=== PATIENT | female | born 1980 | race Caucasian/White ===

== ENCOUNTER → 2021-11-14 | Outpatient (CLI) | payer BC ==
[~2021-11-14] MED LIST: ACHD5005 PO; DCS100C PO; FRS325T PO; IBP600T1 PO
--- NOTE | 2021-11-14 12:07 | Diagnostic Imaging Report ---
INDICATION: Routine screening. COMPARISON: No prior mammograms are available for comparison. This is a baseline study. TECHNIQUE: 2D and 3D bilateral screening mammography was performed with CAD. FINDINGS: Both breasts are heterogeneously dense, limiting the sensitivity of mammography. There are numerous circumscribed nodules in the outer aspects of both breasts, most suggestive of intraparenchymal lymph nodes. A more ill-defined density in the outer right breast at mid depth is noted, best seen on the CC view. This may be superiorly located on the MLO view. Additional views are recommended. No suspicious density in the left breast is identified. The axillae are unremarkable. IMPRESSION: Right breast density. Additional views are recommended for further evaluation. ACR BI-RADS Category 0: Incomplete. (Needs additional imaging evaluation). Result letter will be mailed to the patient. Note: At least 10% of breast cancer is not imaged by mammography. Dictated by: Dictated on workstation # [id number]
== END ==
LOC: RAD 09:53
PROVIDERS: ATTEND Nurse Practitioner Women's Health
DX: Z12.31 Encounter for screening mammogram for malignant neoplasm of breast (principal)
CPT/HCPCS: 77063; 77067

== ENCOUNTER → 2021-11-30 | Outpatient (CLI) | payer BC ==
--- NOTE | 2021-11-30 09:33 | Diagnostic Imaging Report ---
INDICATION: Right breast density. Patient presents for additional views. COMPARISON: Correlation is made with the screening study from 11/14/2021. TECHNIQUE: Unilateral right 2D and 3D diagnostic mammography was performed. This included spot compression CC, rolled CC, and conventional 90 degree lateral views. The current study was evaluated with a Computer Aided Detection (CAD) system. FINDINGS: The additional views show a persistent density in the outer right breast. This appears to be superiorly located approximately 5 to 7 cm from the nipple. IMPRESSION: Persistent density in the upper outer right breast 5 to 7 cm from the nipple. Further evaluation with ultrasound is recommended and will be performed today. ACR BI-RADS Category 0: Incomplete. (Needs additional imaging evaluation). Result letter will be mailed to the patient. Note: At least 10% of breast cancer is not imaged by mammography. Dictated by: Dictated on workstation # [id number]
--- NOTE | 2021-11-30 10:16 | Diagnostic Imaging Report ---
Indication: Right breast density. Correlation is made with diagnostic mammogram earlier same day and screening study from 11/14/2021. Sonographic interrogation upper outer right breast was performed. There are several cystic structures in the upper outer right breast from the 9:30-10:00 location, 7-8 cm from the nipple. Largest cyst measures 6 mm x 3 mm x 5 mm. No concerning sonographic findings are seen. No solid masses are detected. IMPRESSION: BI-RADS Category 3 There are multiple cysts in the upper outer right breast. It is uncertain if these represent the density noted mammographically. Therefore, follow-up right mammogram in 6 months is recommended to show continued stability. ACR BI-RADS Category 3: Probably benign findings. Dictated by: Dictated on workstation # [id number]
== END ==
LOC: RAD 08:53
PROVIDERS: ATTEND Nurse Practitioner Women's Health
DX: N60.01 Solitary cyst of right breast (principal); R92.2 Inconclusive mammogram
CPT/HCPCS: 76642; 77065; G0279

== ENCOUNTER → 2022-05-31 | Outpatient (CLI) | payer BC ==
--- NOTE | 2022-05-31 10:14 | Diagnostic Imaging Report ---
Ultrasound right breast limited. Indication: Followup mammogram The previous right breast ultrasound exam performed on 11/30/2021 noted several well-circumscribed hypoechoic nodules in the upper-outer quadrant of the right breast. These were felt to correspond to the area of increased density seen on the baseline screening mammogram. These hypoechoic areas were felt to be most likely benign and probably related to cysts. On this exam both findings are again evident and do not appear to have changed significantly in size or appearance. The largest of these hypoechoic lesions measures 6 x 3 x 4 mm opposed to 6 x 3 x 5 mm previously. I do suspect that these are benign. Even so, I would recommend this area be reevaluated by ultrasound when the patient has her annual bilateral mammogram on schedule in November of this year. Impression: The small hypoechoic lesions seen previously appears stable and are most likely benign. Recommendations as above. ACR BI-RADS Category 3: Probably benign findings. Result letter will be mailed to the patient. Note: At least 10% of breast cancer is not imaged by mammography. Dictated by: Dictated on workstation # [id number]
--- NOTE | 2022-05-31 14:43 | Diagnostic Imaging Report ---
EXAMINATION: 3D diagnostic right mammogram with CAD. INDICATION: Followup mammogram. FINDINGS: The baseline mammogram performed on 11/14/2021 noted an area of increased density in the upper-outer quadrant of the right breast. The subsequent ultrasound exam of 11/30/2021 suggested multiple cysts in this region. On this study, the area of increased density is again seen and does not appear to have changed significantly. The overall appearance of the right breast itself is also stable. The fibroglandular tissue in the right breast is heterogeneously dense and this does limit the sensitivity of this exam. There is no primary or secondary sign of malignancy noted. IMPRESSION: 1. The appearance of the right breast is stable when compared to the prior exam. There is no evidence for malignancy. 2. Ultrasound is pending for further study. ACR BI-RADS Category 0: Incomplete. (Needs additional imaging evaluation). Result letter will be mailed to the patient. Note: At least 10% of breast cancer is not imaged by mammography. Dictated by: Dictated on workstation # [id number]
== END ==
LOC: RAD 08:57
PROVIDERS: ATTEND Nurse Practitioner Women's Health
DX: N64.9 Disorder of breast, unspecified (principal)
CPT/HCPCS: 76642; 77065; G0279

== ENCOUNTER → 2022-11-15 | Outpatient (CLI) | payer BC ==
--- NOTE | 2022-11-15 14:53 | Diagnostic Imaging Report ---
Indication: Six-month follow-up right breast nodules. Correlation is made with right mammogram from 05/29/2022 and bilateral mammogram from 11/14/2021. 2-D and 3-D bilateral diagnostic mammography was performed with CAD. The current study was also evaluated with a Computer Aided Detection (CAD) system. Both breasts are heterogeneously dense, limiting the sensitivity of mammography. Circumscribed benign-appearing nodules in the upper and outer aspects of both breast appears stable. No new mass or malignant-appearing microcalcifications are seen. Axillae are unremarkable. IMPRESSION: BI-RADS Category 0 No mammographic features suspicious for malignancy are identified. Even so, sonographic interrogation upper outer right breast to evaluate previously noted right breast nodules is recommended and will be performed today. ACR BI-RADS Category 0: Incomplete. (Needs additional imaging evaluation). Result letter will be mailed to the patient. Note: At least 10% of breast cancer is not imaged by mammography. Dictated by: Dictated on workstation # [id number]
--- NOTE | 2022-11-15 16:52 | Diagnostic Imaging Report ---
INDICATION: Six-month followup right breast nodules. COMPARISON: Correlation is made with the prior ultrasound from 05/31/2022. FINDINGS: Sonographic interrogation of the upper outer right breast was performed. The circumscribed hypoechoic nodules at the 9 to 9:30 location are again noted. A circumscribed nodule 7 cm from the nipple at this location measures approximately 5 mm x 4 mm. Small hypoechoic nodules 8 to 9 cm from the nipple at the 9:30 location are approximately 5 mm in size. These likely represent intraparenchymal lymph nodes and are similar to the prior exam. No concerning sonographic findings are identified. IMPRESSION: Benign-appearing nodules in the outer right breast as described which are stable when compared to the exam from 05/31/2022. The patient may return to routine annual screening mammography. ACR BI-RADS Category 2: Benign findings. Dictated by: Dictated on workstation # [id number]
== END ==
LOC: RAD 13:45
PROVIDERS: ATTEND Nurse Practitioner Women's Health
DX: N63.11 Unspecified lump in the right breast, upper outer quadrant (principal); R92.8 Other abnormal and inconclusive findings on diagnostic imaging of breast
CPT/HCPCS: 76642; 77066; G0279; 77062